=== PATIENT | male | born 1965 | race Caucasian/White ===

== ENCOUNTER 2022-01-03 07:52 | Outpatient (CLI) | payer BC, SELFPAY ==
--- OUTSIDE RECORDS SUMMARY | 2022-01-03 07:55 | XMS_ITS | Encounter Summary ---
:1965 Author Organization [facility] Address [address] [place] [address] Care Team Providers Name Role Phone Elsewhere, Pcp Primary Care Provider Unavailable Encounter Details Date Type Department Care Team Description 08/31/2020 Immunization Department of Barrie Wu [facility] unter For COVID-19 Medicine in [facility] Vaccine Immunization [place], [place] [address] [place] [phone] Social History Tobacco Use Types Packs/Day Years Used Date Smoking Tobacco: Never Assessed Sex Assigned at Date Recorded Not on file documented as of this encounter Plan of Treatment Not on filedocumented as of this encounter Visit Diagnoses Diagnosis Encounter For COVID-19 Vaccine Immunizat ion documented in this encounter 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
--- OUTSIDE RECORDS SUMMARY | 2022-01-03 07:55 | XMS_ITS | Encounter Summary ---
:1965 Author Organization [facility] Address [address] [place] [address] Care Team Providers Name Role Phone Elsewhere, Pcp Primary Care Provider Unavailable Reason for Referral Specialty Diagnoses / Procedures Referred By Contact Refer red To Contact [facility] Suzanne huang [facility] Region [address] [place] [address] Referral ID Status Reason Start Date Expiration Date Visits Requ ested Visits Authorized Reason for Visit Appointment Request (Routine) - Closed Specialty Diagnoses / Procedures Referred By Contact Refer red To Contact Family Medicine Barrie Cortez D.O. [address] [place] [address] Referral ID Status Reason Start Date Expiration Date Visits Requ ested Visits Authorized [id number] Closed 08/01/2020 08/01/2021 1 1 Encounter Details Date Type Department Care Team Description 08/03/2020 Immunization Department of [facility] er For COVID-19 Medicine in [place], [facility] ine Immunization [place] (Primary Dx) [address] [place] [address] Social History Tobacco Use Types Packs/Day Years Used Date Smoking Tobacco: Never Assessed Sex Assigned at Date Recorded Not on file documented as of this encounter Plan of Treatment Scheduled Referrals Name Type Priority Associated Diagnoses Order S chedule Covid immunization Outpatient Referral Routine Encounter For E xpected: office visit Covid-19 Vaccine 08/31/2020, Subsequent; 28 days Immunization Expires: 08/04/2023 documented as of this encounter Visit Diagnoses Diagnosis Encounter For COVID-19 Vaccine Immunizat ion - Primary documented in this encounter Care Teams Water Systems Engineer Relationship Specialty Start Date End Date Elsewhere, Pcp PCP - General Family Medicine 08/01/20 documented as of this encounter
--- OUTSIDE RECORDS SUMMARY | 2022-01-03 07:55 | XMS_ITS ---
:1965 Author Care Team Providers Name Role Phone Rina Barakat Primary Care Provider Unavailable Allergies None recorded. Medications Name Status Start Date Stop Date ? ? atorvastatin 10 mg tablet Active ? Not av ailable celecoxib 200 mg capsule Active ? Not caleb ilable chlorthalidone 25 mg tablet Active ? Not available lisinopril 40 mg tablet Active ? Not avai lable Problems None recorded. Procedures None recorded. Results Lab Results Date Name Specimen Result Interpretation Description Value Range Status Address ? 03/11/2018 Lipid ? Cholesterol, 140 100-199 Final [facility]: Panel, Total mg/dL mg/dL [address] , [place] ? ? Above Triglycerides 234 0-149 Final [facility]: High mg/dL mg/dL [address] , [place] ? ? ? HDL 44 >39 mg/dL Final [facility] : Cholesterol mg/dL [address] , [place] ? ? Above VLDL 47 5-40 Final [facility]: High Cholesterol Alvaro mg/dL mg/dL [address] , [place] ? ? ? LDL 49 0-99 Final [facility]: Cholesterol mg/dL mg/dL [address] , [place] ? ? ? 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 Cancelled [facility]: [address] , [place] ? ? ? LDL/HDL Ratio 1.1 0.0-3.6 Final [facility]: ratio ratio [address] , [place] 03/11/2018 HbA1C Above Hemoglobin a1C 5.7 % 4.8-5.6 % F inal [facility]: (Hemoglo High [address] , a1C), [place] Blood Past Encounters 02/16/2021 Administration of Influenza Vaccine LETY Salinas: [address], [place] [address], Ph. Social History None recorded. Vaccine List Vaccine Type influenza, injectable, quadrivalent 03/11/2018 influenza, injectable, quadrivalent, pre servative free 02/16/2021?0.5 mL Plan of Care Reminders Provider Appointments None recorded. ? ? Lab None recorded. ? ? Referral None recorded. ? ? Procedures None recorded. ? ? Surgeries None recorded. ? ? Imaging None recorded. ? ? Vitals None recorded.
--- OUTSIDE RECORDS SUMMARY | 2022-01-03 07:55 | XMS_ITS | Clinical Summary ---
:1965 Author Organization [facility] Address [address] [place] [address] Care Team Providers Name Role Phone Elsewhere, Pcp Primary Care Provider Unavailable Source Comments Patient records contain information from all sites at [facility]. For routine questions regarding patient records, call [phone] during business hours, M-F 8:00 AM - 5:00 PM Central Time. Record requests for emergency care only can be directed to [phone] at any time.[facility] Immunizations Name Administration Dates Next Due SARS-COV-2 (COVID-19) - MODERNA 08/31/2020, 08/03/2020 Social History Tobacco Use Types Packs/Day Years Used Date Smoking Tobacco: Never Assessed Sex Assigned at Date Recorded Not on file Plan of Treatment Health Maintenance Due Date Last Done Comments CT Colonography 1966 Cologuard 1965 Colonoscopy 1966 Colorectal Cancer Screening 1966 FIT 1966 Fasting Glucose for 1966 Diabetes Screening Fasting Lipid Panel 1966 HIV Screening 1966 Hepatitis B Vaccines (1 of 1966 3 - 3-dose series) Hepatitis C Screening 1966 Zoster Vaccines (1 of 2) 2016 Depression Screening 05/13/2021 (Annual PHQ-2) COVID-19 Vaccine (4 - 08/13/2021 04/14/2021, 08/31/2020, Booster for Moderna series) 08/03/2020 Influenza Vaccine (#1) 2022 02/22/2021, 02/16/2021, 02/15/2020, Additional history exists DTaP,Tdap,and Td Vaccines 06/28/2030 06/28/2020, 10/16/2011 , (3 - Td or Tdap) 03/11/2003 Pneumococcal vaccine (0-64 Aged Out No lo nger eligible years) based on patient 's age to complete this topic Insurance Payer Benefit Plan / Subscriber ID Effective Dates Phone Addre ss Type Group BLUE CROSS RAYA BLUE [id number] 2019-Presen [phone] [address] X [id number] PPO [facility] ACCESS t [address] [place] [address] 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
--- NOTE | 2022-01-03 08:00 | CRLHL7_ITS ---
For Patients: As a result of the Cures Act, medical imaging exams and procedure reports are released immediately into your electronic medical record. You may view this report before your referring provider. If you have questions, please contact your health care provider. Indication: POLYP SEEN ON PHYSICAL EXAM. SINUSITIS Technique: Performed without IV contrast Comparison: None available Findings: Frontal sinuses: Mucoperiosteal thickening within the frontal sinuses bilaterally, moderate. Ethmoid sinuses: Moderately severe mucoperiosteal thickening within the bilateral ethmoid sinuses. Maxillary sinuses: Moderately severe right and moderate left mucoperiosteal thickening bilaterally. The maxillary sinus drainage pathways are obstructed on both sides. Sphenoid sinuses: There is mild mucosal thickening within the sphenoid sinuses, right greater than left with obstruction of the sphenoethmoidal recesses. Nasal Cavity: Mild rightward deviation of the nasal septum. Nodularity of the inferior turbinate mucosa bilaterally. Nonobstructing jennifer bullosa left middle turbinate. Mucus noted within the nasal cavity along with nodular areas compatible with polyps. No TMJ abnormalities identified. The visualized portions of the orbits, intracranial contents and upper soft tissue neck are grossly negative. Trace left mastoid effusion noted. Normal middle ear cavities. Impression: 1. Bilateral sinus disease with obstruction of the sinus drainage pathways. 2. Nasal polyps. Please note that all CT scans at this facility use dose modulation, iterative reconstruction, and/or weight-based dosing when appropriate to reduce radiation dose to as low as reasonably achievable. Dictated by Elia Miller MD @ 01/03/2022 9:12:10 AM (Electronically Signed)
== END 2022-01-03 07:53 | disposition home or self-care (01) ==
LOC: CT 07:53
PROVIDERS: PCP Family Medicine; Visit Provider Otolaryngology
DX: R09.81 Nasal congestion (principal); J33.8 Other polyp of sinus; J34.89 Other specified disorders of nose and nasal sinuses
CPT/HCPCS: 70486

== ENCOUNTER 2022-01-31 08:34 | Outpatient (CLI) | payer BC, SELFPAY ==
--- OUTSIDE RECORDS SUMMARY | 2022-01-31 08:37 | XMS_ITS | Encounter Summary ---
:1965 Author Organization [facility] Address [address] [place] [address] Care Team Providers Name Role Phone Elsewhere, Pcp Primary Care Provider Unavailable Reason for Referral Specialty Diagnoses / Procedures Referred By Contact Refer red To Contact [facility] Suzanne huang [facility] Region [address] [place] [address] Referral ID Status Reason Start Date Expiration Date Visits Requ ested Visits Authorized Reason for Visit Appointment Request (Routine) - Closed Specialty Diagnoses / Procedures Referred By Contact Refer red To Contact Family Medicine Barrie Cortez D.O. [address] [place] [address] Referral ID Status Reason Start Date Expiration Date Visits Requ ested Visits Authorized [id number] Closed 08/01/2020 08/01/2021 1 1 Encounter Details Date Type Department Care Team Description 08/03/[address] [facility] er For COVID-19 Medicine in [place], [facility] ine Immunization [place] (Primary Dx) [address] [place] [address] Social History Tobacco Use Types Packs/Day Years [...] Primary documented in this encounter Care Teams Golf Range Attendant Relationship Specialty Start Date End Date Elsewhere, Pcp PCP - General Family Medicine 08/01/20 documented as of this encounter
--- OUTSIDE RECORDS SUMMARY | 2022-01-31 08:37 | XMS_ITS ---
[...] [address] , [place] ? ? Above Triglycerides 234 0-149 Final [facility]: High mg/dL mg/dL [address] , [place] ? ? ? HDL 44 >39 mg/dL Final [facility] : Cholesterol mg/dL [address] , [place] ? ? Above VLDL 47 5-40 Final [facility]: High Cholesterol Alvaro mg/dL mg/dL [address] , [place] ? ? ? LDL 49 0-99 Final [facility]: Cholesterol mg/dL mg/dL [address] , [place] ? ? ? 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 Cancelled [facility]: [address] , [place] ? ? ? LDL/HDL Ratio 1.1 0.0-3.6 Final [facility]: ratio ratio [address] , [place] 03/11/2018 HbA1C Above Hemoglobin a1C 5.7 % 4.8-5.6 % F inal [facility]: (Hemoglo High [address] , a1C), [place] Blood Past Encounters 02/16/2021 Administration of Influenza Vaccine LETY Salinas: [address], [place] [address], Ph. Social History None recorded. Vaccine List [...]
--- OUTSIDE RECORDS SUMMARY | 2022-01-31 08:37 | XMS_ITS | Encounter Summary ---
:1965 Author Organization [facility] Address [address] [place] [address] Care Team Providers Name Role Phone Elsewhere, Pcp Primary Care Provider Unavailable Encounter Details Date Type Department Care Team Description 08/31/2020 Immunization Department of Barrie Wu Enco unter For COVID-19 Medicine in [facility] Vaccine Immunization [place], [place] [address] [place] [phone] Social History Tobacco Use Types Packs/Day Years Used Date Smoking Tobacco: Never Assessed Sex Assigned at Date Recorded Not on file documented as of this encounter Plan of Treatment Not on filedocumented as of this encounter Visit Diagnoses Diagnosis Encounter For COVID-19 Vaccine Immunizat ion documented in this encounter 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
--- OUTSIDE RECORDS SUMMARY | 2022-01-31 08:37 | XMS_ITS | Clinical Summary ---
:1965 Author Organization [facility] Address [address] [place] [address] Care Team Providers Name Role Phone Elsewhere, Pcp Primary Care Provider Unavailable Source Comments Patient records contain information from all sites at [facility]. For routine questions regarding patient records, call [phone] during business hours, M-F 8:00 AM - 5:00 PM Central Time. Record requests for emergency care only can be directed to [phone] at any time.[facility] Immunizations Name Administration Dates Next Due SARS-COV-2 (COVID-19) - MODERNA 08/31/2020, 08/03/2020 Social History Tobacco Use Types Packs/Day Years Used Date Smoking Tobacco: Never Assessed Sex Assigned at Date Recorded Not on file Plan of Treatment Health Maintenance Due Date Last Done Comments CT Colonography 1966 Cologuard 1966 Colonoscopy 1966 Colorectal Cancer Screening 1966 FIT 1966 Fasting Glucose for 1966 Diabetes Screening HIV Screening 1966 Hepatitis B Vaccines (1 of 1966 3 - 3-dose series) Hepatitis C Screening 1966 Lipid (Cholesterol) 1966 Screening Zoster Vaccines (1 of 2) 2016 Depression Screening 05/13/2021 (Annual PHQ-2) COVID-19 Vaccine (4 - 06/09/2021 04/14/2021, 08/31/2020, Booster for Moderna series) 08/03/2020 [...] Addre ss Type Group BLUE CROSS RAYA LOPEZ [id number] 2019-Presen [phone] PO NAZIA X [id number] PPO [facility] ACCESS t [address] [place] [id number] Care Teams Ship Self Defense System Mk1 Operator Relationship Specialty Start Date End Date Elsewhere, Pcp PCP - General Family Medicine 08/01/20
[2022-01-31 14:21] LABS: SARS PCR* Negative SARS-CoV-2 (Negative)
[2022-01-31 14:33] LABS: Chloride* 105 mmol/L (96-114)
[2022-01-31 14:34] LABS: Potassium* 4.4 mmol/L (3.6-5.1); Sodium* 139 mmol/L (135-149)
[2022-01-31 14:36] LABS: Cholesterol* 136 mg/dL (90-199); Creatinine* 0.9 mg/dL (0.5-1.5); Estimated Glomerular Filt Rate 101 ml/min
[2022-01-31 14:37] LABS: Blood Urea Nitrogen* 20 mg/dL (7-30); Calcium* 9.2 mg/dL (8.4-10.6); Carbon Dioxide* 25 mmol/L (20-32); Glucose* 102 mg/dL (60-115); Triglycerides* 80 mg/dL (40-149)
[2022-01-31 14:38] LABS: HDL Cholesterol* 51 mg/dL (>=40); LDL Cholesterol Calculated 69 mg/dL (<100)
[2022-01-31 15:08] LABS: PSA Screen* 0.93 ng/mL (0.10-4.00)
== END 2022-01-31 08:35 | disposition home or self-care (01) ==
PROVIDERS: PCP Family Medicine; Visit Provider Family Medicine
DX: Z01.818 Encounter for other preprocedural examination (principal); Z12.5 Encounter for screening for malignant neoplasm of prostate; E78.5 Hyperlipidemia, unspecified; I10 Essential (primary) hypertension
CPT/HCPCS: 80048; 80061; 84153; 87635

== ENCOUNTER 2022-02-02 07:57 | Day surgery (SDC) | payer BC, SELFPAY ==
[2022-02-02] VITALS (14 sets, daily range): BP systolic 129–140; BP diastolic 78–96; PULSE 56–84; RESP 12–16; TEMP 36.2–36.6; O2SAT 96–99; BMI 29.3
[2022-02-02] MEDS: LACTATED RINGERS 1000 ML 1,000 ML 100 ML IV (08:30)
[2022-02-02] MEDS: OXYMETAZOLINE 0.05% NASAL SPRAY 1 SPRAY NOSTRIL-B (08:45)
[2022-02-02] MEDS: COCAINE HCL 4 % 4 ML SOLUTION NOSTRIL-B (09:04)
[2022-02-02] MEDS: BUPIVACAINE 0.5%/EPINEPHRINE 0.9 MG (30.9 ML) INJECTION (09:45)
--- NOTE | 2022-02-02 10:07 | W.ANESCHARGE ---
Anesthesia Charges Start Date/Time Anesthesia Start Date: 02/02/22 Anesthesia Start Time: 09:18 Stop Date/Time Anesthesia Stop Date: 02/02/22 Anesthesia Stop Time: 10:05 Summary Emergency: No
--- NOTE | 2022-02-02 10:09 | W.ANESCHARGE ---
Anesthesia Charges Start Date/Time Anesthesia Start Date: 02/02/22 Anesthesia Start Time: 09:18 Stop Date/Time Anesthesia Stop Date: 02/02/22 Anesthesia Stop Time: 10:05 Summary Emergency: No
[2022-02-02] MEDS: fentaNYL 100 MCG/2 ML inj 50 MCG IVP (10:15)
--- NOTE | 2022-02-02 10:41 | SUR.PHASEI ---
patient met anesthesia criteria for discharge
--- NOTE | 2022-02-02 10:59 | W.PM.ENTPROC ---
Procedure Note Date of procedure: 02/02/22 Procedure: Procedure: Preoperative diagnosis large nasopharyngeal polyp, pansinusitis, mild nasal septal deviation, inferior turbinate hypertrophy, nasal obstruction Postoperative diagnosis same plus additional right nasal polyp at middle meatus new line procedure endoscopic bilateral nasal polypectomy with removal of large nasopharyngeal polyp on the left side and the right-sided smaller polyp., submucous partial resection inferior turbinates Under general endotracheal anesthesia patient was prepped and draped in usual fashion the nose injected and decongested.? The McIvor mouth gag was inserted the tongue retracted forward.? A red rubber catheter was placed in the right nostril and pulled out through the mouth to retract the palate.? A large polyp with visible occluding essentially the entire nasopharynx.? I was unable to easily reach it through the nasopharynx so I went in transnasally and relocated the septum to be midline with a nasal speculum.? I was able improves the polyp down into the nasopharynx or could easily grasped with an up-biting ethmoid forceps on indirect visualization with a laryngeal mirror.? The 0 degree endoscope was also available for use throughout the procedure.? The polyp was removed in total.? And sent to pathology. The remainder of the nose was inspected.? The right polyp was noted in the middle meatus is about 1 cm in size this was also removed.? A stab incision was made in the anterior head of the left inferior turbinate a tunnel created with a [place] dissector.? A conservative anterior submucous resection was performed.? The Coblation was used for hemostasis and to cauterize the inferior 10%.? Dissolvable packing was trimmed and placed beneath the polyp biopsy sites on each side.? The patient procedure well was taken recovery in satisfactory condition.? Blood loss during procedure was less than 25 mL Surgeon: Deshaun Cifuentes MD Surgeon: Deshaun Cifuentes MD
[2022-02-02] MEDS: OXYCODONE 5 MG TABLET PO (11:00)
== END 2022-02-02 12:03 | disposition home or self-care (01) ==
PROVIDERS: PCP Family Medicine; Visit Provider Otolaryngology
PROC: (CPT 31231; principal; 2022-02-02 09:15)
DX: J33.0 Polyp of nasal cavity (principal); J34.2 Deviated nasal septum; J32.4 Chronic pansinusitis; J34.3 Hypertrophy of nasal turbinates
CPT/HCPCS: 31237; 30140; 160; 88304; 88305; A9270; J0330; J1100; J2250; J2405; J2704; J3010; J7120

== ENCOUNTER 2023-03-27 08:27 | Outpatient (CLI) | payer BC, SELFPAY | END 2023-03-27 08:28 | disposition home or self-care (01) | LOC: LONREF 08:28 | PROVIDERS: PCP Family Medicine; Visit Provider Family Medicine | DX: Z00.00 Encounter for general adult medical examination without abnormal findings (principal); E78.5 Hyperlipidemia, unspecified | CPT/HCPCS: 80061 ==

== ENCOUNTER 2024-03-27 13:55 | Outpatient (CLI) | payer BC, SELFPAY | END 2024-03-27 13:56 | disposition home or self-care (01) | PROVIDERS: PCP Family Medicine; Visit Provider Family Medicine | DX: Z00.00 Encounter for general adult medical examination without abnormal findings (principal); E78.5 Hyperlipidemia, unspecified; I10 Essential (primary) hypertension; Z12.5 Encounter for screening for malignant neoplasm of prostate | CPT/HCPCS: 80048; 80061; G0103 ==

== ENCOUNTER 2025-04-27 22:13 | Observation (INO) | payer BC, SELFPAY ==
[2025-04-27] VITALS (8 sets, daily range): BP systolic 152–182; BP diastolic 104–113; PULSE 75–90; RESP 10–20; TEMP 36.6; O2SAT 93–98; BMI 33.1
--- OUTSIDE RECORDS SUMMARY | 2025-04-27 22:16 | XMS_ITS | Data Portability ---
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 Localized Spa sm of the Left Levator Scapula, Scalenes, and Upper Trapezius Assessment: Localized spasm of the left levator scapula, scalenes, and upper trapezius. Plan: All issues were adjusted during the visit. Patient responded well to the adjustments. 2. Significant Subluxation in the Mid Thoracic Spine Assessment: Significant subluxation in the mid thoracic spine. Plan: All issues were adjusted during the visit. Patient responded well to the adjustments. Next appointment scheduled in 2 weeks. ASSESSMENT: Patient is a good candidate for conservative care and the prognosis is for a favorable outcome thatachieves the patients' goals. We discussed etiology, activity modifications, home care, and other treatment options. Initially, it is recommended that the patient receive in-office treatment 1 times per week for 8 weeks at which time a re-evaluation will be performed to determine an appropriate change in plan. Initially, treatment will focus on joint manipulation to restore range of motion and reduce pain. We will slowly progress to therapeutic exercises and activities to improve function, strength, and stability may also be used as warranted. If the patient is not responding as expected, more invasive procedures will be discussed along with a referral. All considerations above were discussed with the patient and questions answered to satisfaction. If the patient should have any additional questions, or should the condition evolve or worsen, the patient should not hesitate to contact our office. ASSESSMENT: Patient is a good candidate for conservative care and the prognosis is for a favorable outcome thatachieves the patients' goals. We discussed etiology, activity modifications, home care, and other treatment options. Initially, it is recommended that the patient receive in-office treatment 1 times per week for 8 weeks at which time a re-evaluation will be performed to determine an appropriate change in plan. Initially, treatment will focus on joint manipulation to restore range of motion and reduce pain. We will slowly progress to therapeutic exercises and activities to improve function, strength, and stability may also be used as warranted. If the patient is not responding as expected, more invasive procedures will be discussed along with a referral. All considerations above were discussed with the patient and questions answered to satisfaction. If the patient should have any additional questions, or should the condition evolve or worsen, the patient should not hesitate to contact our office. ecramNot gofkupdfv12/14/2025 11:09:470450. Localized Spasm of the Left Levator Scapula, Scalenes, and Upper Trapezius Assessment: Localized spasm of the left levator scapula, scalenes, and upper trapezius. Plan: All issues were adjusted during the visit. Patient responded well to the adjustments. 2. Significant Subluxation in the Mid Thoracic Spine Assessment: Significant subluxation in the mid thoracic spine. Plan: All issues were adjusted during the visit. Patient responded well to the adjustments. Next appointment scheduled in 2 weeks. ASSESSMENT: Patient is a good candidate for conservative care and the prognosis is for a favorable outcome thatachieves the patients' goals. We discussed etiology, activity modifications, home care, and other treatment options. Initially, it is recommended that the patient receive in-office treatment 1 times per week for 8 weeks at which time a re-evaluation will be performed to determine an appropriate change in plan. Initially, treatment will focus on joint manipulation to restore range of motion and reduce pain. We will slowly progress to therapeutic exercises and activities to improve function, strength, and stability may also be used as warranted. If the patient is not responding as expected, more invasive procedures will be discussed along with a referral. All considerations above were discussed with the patient and questions answered to satisfaction. If the patient should have any additional questions, or should the condition evolve or worsen, the patient should not hesitate to contact our office. ASSESSMENT: Patient is a good candidate for conservative care and the prognosis is for a favorable outcome thatachieves the patients' goals. We discussed etiology, activity modifications, home care, and other treatment options. Initially, it is recommended that the patient receive in-office treatment 1 times per week for 8 weeks at which time a re-evaluation will be performed to determine an appropriate change in plan. Initially, treatment will focus on joint manipulation to restore range of motion and reduce pain. We will slowly progress to therapeutic exercises and activities to improve function, strength, and stability may also be used as warranted. If the patient is not responding as expected, more invasive procedures will be discussed along with a referral. All considerations above were discussed with the patient and questions answered to satisfaction. If the patient should have any additional questions, or should the condition evolve or worsen, the patient should not hesitate to contact our office. ecramNot niebbceaf81/18/2025 23:04:2605. Localized Spasm of the Left Levator Scapula, Scalenes, and Upper Trapezius Assessment: Localized spasm of the left levator scapula, scalenes, and upper trapezius. Plan: All issues were adjusted during the visit. Patient responded well to the adjustments. 2. Significant Subluxation in the Mid Thoracic Spine Assessment: Significant subluxation in the mid thoracic spine. Plan: All issues were adjusted during the visit. Patient responded well to the adjustments. Next appointment scheduled in 2 weeks. ASSESSMENT: Patient is a good candidate for conservative care and the prognosis is for a favorable outcome thatachieves the patients' goals. We discussed etiology, activity modifications, home care, and other treatment options. Initially, it is recommended that the patient receive in-office treatment 1 times per week for 8 weeks at which time a re-evaluation will be performed to determine an appropriate change in plan. Initially, treatment will focus on joint manipulation to restore range of motion and reduce pain. We will slowly progress to therapeutic exercises and activities to improve function, strength, and stability may also be used as warranted. If the patient is not responding as expected, more invasive procedures will be discussed along with a referral. All considerations above were discussed with the patient and questions answered to satisfaction. If the patient should have any additional questions, or should the condition evolve or worsen, the patient should not hesitate to contact our office. ASSESSMENT: Patient is a good candidate for conservative care and the prognosis is for a favorable outcome thatachieves the patients' goals. We discussed etiology, activity modifications, home care, and other treatment options. Initially, it is recommended that the patient receive in-office treatment 1 times per week for 8 weeks at which time a re-evaluation will be performed to determine an appropriate change in plan. Initially, treatment will focus on joint manipulation to restore range of motion and reduce pain. We will slowly progress to therapeutic exercises and activities to improve function, strength, and stability may also be used as warranted. If the patient is not responding as expected, more invasive procedures will be discussed along with a referral. All considerations above were discussed with the patient and questions answered to satisfaction. If the patient should have any additional questions, or should the condition evolve or worsen, the patient should not hesitate to contact our office. ecramNot nbxcoqjtp26/16/2025 16:30:5808SSESSMENT: Patient is a good candidate for conservative care and the prognosis is for a favorable outcome thatachieves the patients' goals. We discussed etiology, activity modifications, home care, and other treatment options. Initially, it is recommended that the patient receive in-office treatment 1 times per week for 8 weeks at which time a re-evaluation will be performed to determine an appropriate change in plan. Initially, treatment will focus on joint manipulation to restore range of motion and reduce pain. We will slowly progress to therapeutic exercises and activities to improve function, strength, and stability may also be used as warranted. If the patient is not responding as expected, more invasive procedures will be discussed along with a referral. All considerations above were discussed with the patient and questions answered to satisfaction. If the patient should have any additional questions, or should the condition evolve or worsen, the patient should not hesitate to contact our office. sxxlvrhi6Yjb qikxlnwwi50/06/2025 18:08:0708SSESSMENT: Patient is a good candidate for conservative care and the prognosis is for a favorable outcome thatachieves the patients' goals. We discussed etiology, activity modifications, home care, and other treatment options. Initially, it is recommended that the patient receive in-office treatment 1 times per week for 8 weeks at which time a re-evaluation will be performed to determine an appropriate change in plan. Initially, treatment will focus on joint manipulation to restore range of motion and reduce pain. We will slowly progress to therapeutic exercises and activities to improve function, strength, and stability may also be used as warranted. If the patient is not responding as expected, more invasive procedures will be discussed along with a referral. All considerations above were discussed with the patient and questions answered to satisfaction. If the patient should have any additional questions, or should the condition evolve or worsen, the patient should not hesitate to contact our office. kfzwpumj7Ojm wyylxhoyj46/13/2025 07:17:51 Plan of Treatment Reminders Order DateSubmit DateProviderLast Modified ByMikki DetailsLast Modified TimeDetailsAppointmentsNone recorded.LabNone recorded.ReferralNone recorded. ProceduresNone recorded.SurgeriesNone recorded.ImagingNone recorded.Medication OrdersNone recorded. Patient TargetsNo targets recorded. Patient InstructionsNo instructions recorded. Reason for Referral None Reported. Problems Name Problem SNOMED Code Status Onset Date Resolution Date Notes Provider Name and Address Organization Details Recorded Time Thoracic segmental dysfunction 953994229 Active 04/17 Not NdjdoqbjdRxtuljHluczf95/07/2024 10:21:41Lumbar segmental dysfunction 485144990Booplp85/06/2024Not FbexitgvnPrutycGcztdz72/07/2024 10:21:41Low back tdqm291489583Mlwheq54/06/2024Andrea Hernandez DC [address] [place] [address], [place], [address], Formerly [facility]04/17/2024 19:02:06Somatic dysfunction of sacral spine 469866562Actumj82/06/2024Not DqlpyfunuMcgbzpLhzkck49/07/2024 10:21:41Cervical segmental lhjnadrodsh452788344Rmurke81/03/2025Andrea Hernandez DC [address] [facility], [address], Formerly [facility]05/15/2024 21:36:12Muscle spasm of cervical muscle of neck 298017171909Xykmdh06/03/2025Andrea Hernandez DC [address] [facility],[address], [address], [facility]ly [facility]05/15/2024 21:36:19Somatic dysfunction of pelvic region 452032792Rvtdyo07/03/2025Andrea Hernandez DC [address] [facility], [place], [address], Formerly [facility]05/15/2024 21:36:34Neck rndl48356135Xvfipi84/07/2025Eric Jacob Hernandez, MOISÉS [address] [facility], [place], [address], [facility]ly [facility]06/19/2024 16:23:18Lesion of lumbar egndi964490163Dasyfp 12/23/2024Scmanuel FitchalbertogalindoMOISÉS [address] [facility], [place], [address], [facility]12/23/2024 07:17:53 Problem Notes None recorded. Procedures Surgical History Date Name Laterality Status Provider Name and Address Organization Details Recorded Time 12/22/2024 93901: Spinal manipulation, 3 to 4 regions completedScmanuel Crow, MOISÉS [address] [facility], [place], [address], [facility]ly [facility]12/23/2024 07:18:04088941: Spinal manipulation, 3 to 4 regionscompletedScot Cecil Fitchalbertogalindo, MOISÉS [address] [facility], [place], [address], [facility]ly [facility]12/16/2024 18:08:22058941: Spinal manipulation, 3 to 4 regionscompletedEric Jacob Hernnadez, DC [address] [facility], [place], [address], [facility]ly [facility]09/25/2024 16:30:58048941: Spinal manipulation, 3 to 4 regionscompletedEric Jacob Hernandez, DC [address] [facility], [place], [address], [facility]08/28/2024 23:04:2603/[id number]: Spinal manipulation, 3 to 4 regionscompletedEric Jacob Hernandez, DC [address] [facility], [place], [address], [facility]07/24/2024 11:09:47028941: Spinal manipulation, 3 to 4 regionscompletedEric Jacob Hernandez, DC [address] [facility], [place], [address], [facility]06/19/2024 16:24:06598941: Spinal manipulation, 3 to 4 [facility]comMon [facility] Centeric Jacbo Hernandez DC [address] [facility], [place], [address], [facility]05/15/2024 21:35:55498941: Spinal manipulation, [facility]com[facility] Jacob Hernandez DC [address] [place] [address], [place], [address], [facility]04/17/2024 19:02:28 Imaging Results None recorded. Procedure Notes None recorded. Medical Equipment None Reported. Vitals None Recorded Social History None recorded. Functional Status None recorded. Mental Status None recorded. Family History Nothing Reported. Medical History No medical history recorded. Past Encounters Encounter ID Performer Location Encounter Start Date Encounter Closed Date Diagnosis/Indication Diagnosis SNOMED-CT Code Diagnosis ICD10 Code Diagnosis IMO Codes Diagnosis Note [id number] Andrea Hernandez DC [facility] [address] [place] [address] 04/17/2024 16:06:50 04/17/2024 19:03:29 Lumbar segmental dysfunction 991611658 M99.03 Low back pbip694120487F27.50 Somatic dysfunction of sacral opwzv734385130L27.04 Thoracic segmental sdpwemngbar384136721W29.02 [id number] Hernandez [facility] [address] [place] [address] 05/15/2024 16:02:05005/19/2024 11:14:25Thoracic segmental jxqgprckwsd787086130 M99.02 Cervical segmental qyrqvroikbq484098219O69.01 Muscle spasm of cervical muscle of sbuq648607605142Y71.838 Somatic dysfunction of pelvic saalyr891846823D87.05 [id number] Hernandez [facility] [address] [place] [address] 06/19/2024 15:57:11006/19/2024 16:40:06Thoracic segmental xomwfjxfrfl195939783 M99.02 Cervical segmental qxvuncsjsjt814648213T53.01 Muscle spasm of cervical muscle of kkto162437255232W98.838 Somatic dysfunction of pelvic tfcgdx953872184Y24.05 Lumbar segmental quhgxqadzej145804968J78.03 Low back zoir322239736X81.50 Somatic dysfunction of sacral iafue176526442Q10.04 Neck hsgf95909035K91.2 [id number] Jacob Hernandez, [facility] [address] [place] [address] 07/24/2024 10:58:14007/24/2024 11:46:35Thoracic segmental cbmjufdvqxo282911449 M99.02 Cervical segmental mjresqaemov451323413D96.01 Muscle spasm of cervical muscle of tdam735934923951Y57.838 Somatic dysfunction of pelvic gqoalh142808113S81.05 Lumbar segmental ewhlyuoiemk601133319X64.03 Low back paoa244095387G89.50 Somatic dysfunction of sacral dzpjq628548302Z62.04 Neck ugei61800979K72.2 [id number] HernandezN[facility] & [address] [place] [address] 08/28/2024 15:52:32008/31/2024 16:26:29Thoracic segmental nulzcqtvxhw860451239 M99.02 Cervical segmental fbtftglkomd956043030P05.01 Muscle spasm of cervical muscle of nsfz791009273865V54.838 Somatic dysfunction of pelvic jmudkc947246270G29.05 Lumbar segmental aznhfjfrubl952089403Z16.03 Low back zqkj102707597U23.50 Somatic dysfunction of sacral ruolh772996945G83.04 Neck fgfj90498469I84.2 [id number] Jacob [facility] [address] [address] 09/25/2024 15:47:41009/25/2024 16:33:10Thoracic segmental wspldlvdsif026663519 M99.02 Cervical segmental krhosodozmb063046140V48.01 Muscle spasm of cervical muscle of iamf526793704740E63.838 Somatic dysfunction of pelvic ukrlwd686954826M06.05 Lumbar segmental hnxoyviorbn278585322B29.03 Low back flmd691463679X44.50 Somatic dysfunction of sacral pmtxk950064079G16.04 Neck vdjk25931126L25.2 [id number] Cecil FitchalbertogalindoHOLZER [facility] & [address] [place] [address] 12/16/2024 14:54:10012/16/2024 18:14:23Lumbar segmental vmcpbliheem915401060 M99.03 Low back aist449916012G45.50 Somatic dysfunction of sacral kalbc619128366O97.04 Thoracic segmental qqveozhdyum140347664A94.02 [id number] Cecil FitchalbertogalindoHOLZER [facility] [address] [place] [address] 12/22/2024 17:07:30012/24/2024 11:24:53Cervical segmental tlxiosoqxxy932767393 M99.01 Neck rhte63481390A75.2 Thoracic segmental ttgdsajlket040482507K84.02 Lumbar segmental yhooqcmnofy865199769I65.03 Lesion of lumbar fkwjy529221821M33.01 Health Concerns Section Related Observation LastModified by Organization Detai ls LastModified Time None Recorded Concern Status LastModified by Organization Details LastModified Time None Recorded Advance Directives Directive None Recorded Payers Insurance Date Sequence Insurance Name Policy Number Policy Hdz Covered Member ID Hdz Member ID Guarantor Name 04/17/2024 1 *SELF PAY* Raymond Bates Notes Date Note Type Note Provider Name and Address Orga nization Details Recorded Time 07/24/2024 text/html HPI - Cervical S pineReported by PatientHPIFor location, patient reportsright. For quality, patient reportsaching. For severity, patient reportsmild. For timing, patient reportsgradual. For alleviating factors, patient reportsrest. For aggravating factors, patient reportstwisting/turning. For associated symptoms, patient reportsno numbness/tingling. HPI - Lumbar SpineReported by PatientHPIFor location, patient reportsbilateral (with radiation to knee). For quality, patient reportsaching. For severity, patient reportsmoderate. For timing, patient reportsrecurrent. For context, patient reportsbending,lifting, andtwisting. For aggravating factors, patient reportslifting,carrying, andtwisting. For alleviating factors, patient reports rest.Andrae Hernandez DC [address] [facility], [place], [address], Formerly [facility]07/24/2024 11:29:4904text/htmlHPI - Cervical Spine Reported by PatientHPIFor location, patient reportsright. For quality, patient reportsaching. For severity, patient reportsmild. For timing, patient reports gradual. For alleviating factors, patient reportsrest. For aggravating factors, patient reportstwisting/turning. For associated symptoms, patient reportsno numbness/tingling. HPI - Lumbar SpineReported by PatientIFor location, patient reportsbilateral (with radiation to knee). For quality, patient reportsaching. For severity, patient reportsmoderate. For timing, patient reportsrecurrent. For context, patient reportsbending,lifting, andtwisting. For aggravating factors, patient reportslifting,carrying, andtwisting. For alleviating factors, patient reports rest.Andrea Hernandez DC [address] [facility], [place], [address], [facility]08/28/2024 23:05:2805text/htmlHPI - Cervical Spine Reported by PatientHPIFor location, patient reportsright. For quality, patient reportsaching. For severity, patient reportsmild. For timing, patient reports gradual. For alleviating factors, patient reportsrest. For aggravating factors, patient reportstwisting/turning. For associated symptoms, patient reportsno numbness/tingling. HPI - Lumbar SpineReported by PatientIFor location, patient reportsbilateral (with radiation to knee). For quality, patient reportsaching. For severity, patient reportsmoderate. For timing, patient reportsrecurrent. For context, patient reportsbending,lifting, andtwisting. For aggravating factors, patient reportslifting,carrying, andtwisting. For alleviating factors, patient reports rest.Andrea Hernandez DC [address] [facility], [place], [address], [employer]09/25/2024 16:32:00012/16/2024text/htmlHPI - Lumbar Spine Reported by PatientHPIFor location, patient reportsleft. For quality, patient reportsaching. For severity, patient reportsmoderate. For timing, patient reportsmorning. For aggravating factors, patient reportswalking,lifting,carrying , andtwisting. For alleviating factors, patient reportsrest.Torsten Crow DC [address] [facility], [place], [address], [employer]12/16/2024 18:08:35012/22/2024text/htmlHPI - Cervical Spine Reported by PatientHPIFor location, patient reportsleft. For quality, patient reportsaching. For severity, patient reportsmoderate. For duration, patient reports2 weeks. For timing, patient reportsgradual. For alleviating factors, patient reportsice. For aggravating factors, patient reportssitting. For associated symptoms, patient reportsno numbness/tingling.Torsten Crow DC [address] [facility], [place], [address], [employer]12/23/2024 07:18:13
--- NOTE | 2025-04-27 22:20 | ED.GENADULT ---
HPI - General Adult General Date Seen: 04/27/25 Chief complaint: Hypertension Stated complaint: High BP Time Seen by Provider: 04/27/25 22:17 History of Present Illness HPI narrative: 59-year-old gentleman with a history of hyperlipidemia, hypertension, GERD, and a family history of coronary artery disease. He presents to the ER today for evaluation of high blood pressure. Per medical record it looks like his primary care provider is Dr. Aiken. Most recent checkup was in March of 2024. At that time he was on lisinopril 40 mg daily for blood pressure, also atorvastatin and omeprazole. Labs showed BUN of 17 and creatinine of 1.0. Glucose 87. Blood pressure was 124/76. He had been doing well for the past year. He was switched from lisinopril to irbesartan for his blood pressure. He notes that a couple weeks ago he had a few dizzy spells. One of them was a little bit lightheadedness and presyncope and another of the spells is described as a clear spinning vertigo type episode. He has not had any dizzy spells over the past week or so. No other chest pain. He did get a home blood pressure cuff and has been measuring his blood pressure for the past couple of days and has been running fairly high in the 160s-170/1 10s. He has not had any recent chest pain. Tonight at about 9 or 9:30 p.m. he was sitting on the couch watching TV when he suddenly started to feel tingling paresthesias and numbness affecting his left elbow, forearm and hand. It sounds like it started in his left elbow and then progressed distally from there to involve all the way down to his hand including the fingers. No weakness. No clumsiness. No right arm numbness. No headache. No facial droop. No blurry vision. No leg numbness or weakness. He checked his blood pressure and it was more elevated. No chest pain. No shortness of breath. No back pain. Related Data Home Medications ?Medication ?Instructions ?Recorded ?Confirmed omega 6-zna-kbi-fish oil 300 1 cap PO QDAY 01/31/22 03/27/24 mg-1,000 mg capsule (Fish Oil) omeprazole 20 mg capsule,delayed 20 mg PO QDAY 01/31/22 03/27/24 release Previous Rx's ?Medication ?Instructions ?Recorded lisinopril 40 mg tablet 40 mg PO QDAY #90 tabs 03/27/23 atorvastatin 10 mg tablet 10 mg PO QDAY #90 tabs 04/01/25 irbesartan 150 mg tablet 150 mg PO QDAY #90 tabs 04/01/25 Allergies Allergy/AdvReac Type Severity Reaction Status Date / Time ibuprofen Allergy Mild Stomach Verified 03/27/24 13:19 pains PFSH PFSH Surgical History Status post tonsillectomy (02/01/09) ?Z90.89 - Acquired absence of other organs (ICD-10) Social History What is your current living situation?: I presently have a place to live Problems where you live: no known problems In the past 12 months, utilities in danger of being shut off: no In past 12 months, lack of transportation kept you from medical appts, meetings, work, or getting things needed for daily living: no In the past 12 mos, have been you worried that your food would run out before you had money to buy more?: never true In the past 12 mos, the food you bought just didn't last and you didn't have money to buy more?: never true Smoking Status: Never smoker How often do you have a drink containing alcohol: never AUDIT-C Alcohol total score: 0 Non-prescribed substance use: denies use Caffeine: No How often does anyone, including family, friends and others, physically hurt you: never How often does anyone, including family, friends and others, insult or talk down to you: never How often does anyone, including family, friends and others, threaten you with harm: never How often does anyone, including family, friends and others, scream or curse at you: never Exam Narrative: Exam Narrative: Constitutional: Appears well-developed and well-nourished. Alert. Conversant. Non toxic. HENT: Head: Atraumatic. Nose: Nose normal. Mouth/Throat: Oral mucosa is clear and moist. no trismus. Pharynx normal. Tonsils symmetric. No tonsillar enlargement, erythema, or exudate. Eyes: Conjunctivae normal. EOM normal. Pupils equal, round, and reactive to light. No scleral icterus. Neck: Normal range of motion. Neck supple. No tracheal deviation present. Cardiovascular: Normal rate, regular rhythm. No gallop. No friction rub. No murmur heard. Symmetric radial artery pulses Pulmonary/Chest: Effort normal. No stridor. No respiratory distress. No wheezes. No rales. No rhonchi . No tenderness. Abdominal: Soft. Bowel sounds normal. No distension. No mass. No tenderness. No rebound. No guarding. Musculoskeletal: RUE: Normal range of motion. No tenderness. No deformity LUE: Normal range of motion. No tenderness. No deformity RLE: Normal range of motion. No edema. No tenderness. No deformity LLE: Normal range of motion. No edema. No tenderness. No deformity Lymph: No cervical adenopathy. Neurological: Mental status normal. Attention normal. Alert and oriented x3. GCS 15. Memory normal. Speech fluent. Cognition normal. Cranial Nerves intact II-XII except I did not formally test gag or visual acuity. EOMI. Palate elevates symmetrically and tongue protrudes in the midline. Strength: 5/5 trapezius on the right and left 5/5 deltoid on the right and left 5/5 biceps on the right and left 5/5 triceps on the right and left 5/5 director of analytical development on the right and left 5/5 thumb opposition on the right and left 5/5 finger abduction on the right and left 5/5 hip flexors (L3) on the right and left 5/5 quadriceps (L4) on the right and left 5/5 tibialis anterior on the right and left 5/5 EHL (L5) on the right and left 5/5 gastrocnemius (S1) on the right and left 5/5 hamstring on the right and left Sensation intact to light touch in the right upper extremity. He does have intact sensation in the left upper extremity but feels some subjective paresthesias in the forearm and hand. He says they are getting better now that he is arriving here in the ER but still not quite back to normal. Sensation intact to light touch in Both lower extremities (L4-S1). Finger to nose and coordination normal. NIH stroke scale- 1 Skin: Skin is warm and dry. No rash noted. No pallor. Normal capillary refill. Psychiatric: Normal mood. Normal affect. Polite. Const: Vital Signs, click to edit/add: Vital Signs - 24 hr 04/27/25 22:19 04/27/25 22:40 04/27/25 22:41 Temperature 97.8 F Pulse Rate 85 Pulse Rate [Right Pulse Oximeter] 90 Respiratory Rate 18 20 Blood Pressure 179/111 H Blood Pressure [Ri ght Upper Arm] 175/113 H Pulse Oximetry 98 94 98 Oxygen Delivery Me thod Room Air 04/27/25 22:47 04/27/25 23:10 04/27/25 23:18 Temperature Pulse Rate 90 76 77 Pulse Rate [Right Pulse Oximeter] Respiratory Rate 12 10 L 14 Blood Pressure 173/107 H 182/107 H 168/112 H Blood Pressure [Ri ght Upper Arm] Pulse Oximetry 98 94 96 Oxygen Delivery Me thod 04/27/25 23:32 04/27/25 23:48 04/28/25 00:02 Temperature Pulse Rate 75 75 77 Pulse Rate [Right Pulse Oximeter] Respiratory Rate 19 19 20 Blood Pressure 164/104 H 152/107 H 164/116 H Blood Pressure [Ri ght Upper Arm] Pulse Oximetry 93 95 94 Oxygen Delivery Me thod 04/28/25 00:17 Temperature Pulse Rate 73 Pulse Rate [Right Pulse Oximeter] Respiratory Rate 20 Blood Pressure 164/110 H Blood Pressure [Ri ght Upper Arm] Pulse Oximetry 94 Oxygen Delivery Me thod Course Vital Signs Vital signs: Initial Vital Signs Temperature 97.8 F 04/27/25 22:19 Temperature Source Temporal Artery Scan 04/27/25 22:19 Pulse Rate 90 04/27/25 22:19 Respiratory Rate 18 04/27/25 22:19 Blood Pressure 175/113 H 04/27/25 22:19 Blood Pressure Mean 133 H 04/27/25 22:19 Blood Pressure Position Sitting 04/27/25 22:19 Pulse Oximetry 98 04/27/25 22:19 Oxygen Delivery Method Room Air 04/27/25 22:19 Vital Signs Temperature 97.8 F 04/27/25 22:19 Pulse Rate 90 04/27/25 22:19 Respiratory Rate 18 04/27/25 22:19 Blood Pressure 175/113 H 04/27/25 22:19 Pulse Oximetry 98 04/27/25 22:19 Oxygen Delivery Method Room Air 04/27/25 22:19 Temperature 97.8 F 04/27/25 22:19 Pulse Rate 73 04/28/25 00:17 Respiratory Rate 20 04/28/25 00:17 Blood Pressure 164/110 H 04/28/25 00:17 Pulse Oximetry 94 04/28/25 00:17 Oxygen Delivery Method Room Air 04/27/25 22:19 Medications Administered Medications: Discontinued Medications Generic Name Dose Route Start Last Admin Trade Name Anil PRN Reason Stop Dose Admin Aspirin 325 mg 04/27/25 23:48 04/28/25 00:15 Aspirin Ec 325 Mg Tablet PO 04/27/25 23:49 325 mg ONCE ONE Administration Medical Decision Making MDM Narrative Medical decision making narrative: This patient presents for evaluation of elevated blood pressure readings associated with tingling paresthesias affecting his left forearm and hand. There is known history of hypertension in the past. No concerning symptoms of chest pain but consider possible anginal equivalent with his left arm numbness. Initial EKG shows no ischemia and high sensitivity troponin is negative. He is not having any headache. The workup here is negative and the patient does not have any clinical, laboratory, ecg or historical signs of acute coronary ischemia or renal failure. However with his left arm symptoms, consider stroke and neurologic end-organ damage. We did activate a stroke team protocol and the patient was sent for stat head CT and CTA. Here in the ER he had resolution of his tingling paresthesias and is now back to neurologic baseline with no ongoing symptoms. Discussed with stroke neurology, Dr. Colunga. He would recommend admission for neuro monitoring, MRI and TIA workup in the morning. For now I will out permissive hypertension. While in the ER the patient's blood pressure did trend down from about 175-179/113 down to about 152/107 without specific pharmacologic therapy. Discussed with our hospitalist, Dr. Nagel and the overnight [facility] hospitalist at 12:25 p.m. and he accepts for admission. Incidental note is made of a thyroid nodule on the preliminary report of his CT angiogram his neck. Discussed with patient and recommend outpatient follow-up. Lab Data Labs: Lab Results 04/27/25 04/27/25 04/27/25 Range/Units 22:25 22:40 22:43 WBC 7.78 (4.50-11.00) K/uL RBC 5.23 (4.30-5.90) m/uL Hgb 15.2 (13.5-17.5) gm/dL Hct 48.0 (37.0-53.0) % MCV 92 (80-100) fL MCH 29 (26-34) pg MCHC 32 (32-36) gm/dL RDW Coeff of Kindra 13.1 (11.5-15.5) % Plt Count 251 (140-440) K/uL Neut % (Auto) 55.2 (42.0-72.0) % Lymph % (Auto) 30.5 (20-44) % Knox % (Auto) 9.5 (0.0-11.0) % Eos % (Auto) 3.5 (0.0-7.0) % Baso % (Auto) 0.9 (0.0-3.0) % Neut # (Auto) 4.30 (1.7-7.0) K/uL Lymph # (Auto) 2.37 (0.90-2.90) K/uL Knox # (Auto) 0.70 (0.00-0.90) K/UL Eos # (Auto) 0.27 (0.00-0.50) K/uL Baso # (Auto) 0.07 (0.00-0.30) K/uL Abs Immat Gran (auto) 0.03 (0.00-0.30) K/uL Imm/Tot Granulo (auto) 0.4 % INR 0.94 (0.91-1.10) D-Dimer Quant (PE/DVT) Cancelled Sodium 138 (135-149) mmol/L Potassium 3.5 L (3.6-5.1) mmol/L Chloride 104 (96-114) mmol/L Carbon Dioxide 25 (20-32) mmol/L Anion Gap 9 (7-15) mEq/L BUN 18 (7-30) mg/dL Creatinine 1.2 (0.5-1.5) mg/dL Estimated Creat Clear 80.20 Estimated GFR 70 ml/min Glucose 80 (60-115) mg/dL Calcium 9.5 (8.4-10.6) mg/dL POC Troponin I High Sensi 7.2 (2.9-28.0) pg/mL NT-Pro-B Natriuret Pep 193 (See Note) pg/mL POC Creatinine 1.2 (0.6-1.3) mg/dl Imaging Data CTA Head and neck: Attestation: I have reviewed the pertinent imaging results. My impression: Discuss with Stroke Neurology, Dr. Colunga. No acute findings. Radiologist's impression: Preliminary Report: 1. No intracranial proximal large vessel occlusion or significant aneurysm identified. 2. Diminutive A1 segment of the left anterior cerebral artery, with the A2 segment supplied via the anterior communicating artery. The left CHELSIE is otherwise patent. 3. Diminutive right P1 segment with essentially supply of the right posterior cerebral artery which is otherwise appears patent. 4. Cervical arterial vasculature is patent without evidence of dissection or significant stenosis. Left dominant vertebral artery. The right vertebral artery is diminutive but otherwise grossly patent. 5. Enlarged multinodular right thyroid lobe. The largest nodule is heterogeneously enhancing measuring 3.0 cm. Recommend further evaluation with nonemergent thyroid ultrasound CT scan - head: Attestation: I have reviewed the pertinent imaging results. My impression: Discuss with Stroke Neurology, Dr. Colunga. No acute findings Radiologist's impression: IMPRESSION: 1. No acute intracranial findings. 2. Diffuse paranasal sinus mucosal thickening, opacification, and right maxillary sinus air-fluid level suggesting acute sinusitis. Chest x-ray: Attestation: I have reviewed the pertinent imaging results. Radiologist's impression: IMPRESSION: 1. No acute cardiopulmonary disease is seen. Discharge Plan Discharge Clinical Impression: Brain TIA, Hypertension, Thyroid nodule Patient Disposition: Admitted As Observation
--- NOTE | 2025-04-27 22:42 | CRLHL7_ITS ---
For Patients: As a result of the Century Cures Act, medical imaging exams and procedure reports are released immediately into your electronic medical record. You may view this report before your referring provider. If you have questions, please contact your health care provider. INDICATION: Acute stroke, left hand numbness, hypertension. TECHNIQUE: CTA head using intravenous contrast with bolus tracking, 3D angiographic rendering using maximum intensity projection (MIP) and images permanently archived. CTA neck using intravenous contrast with bolus tracking, 3D angiographic rendering using maximum intensity projection (MIP) and images permanently archived. FINDINGS: CTA head: There is normal opacification of the intracranial vasculature. There is no large vessel occlusion or significant intracranial stenosis. No aneurysm is identified. CTA neck: There is no significant carotid artery stenosis or dissection. There is no significant vertebral artery stenosis or dissection. IMPRESSION: No acute intracranial abnormality at CTA. No significant carotid or vertebral artery stenosis or dissection. Per preliminary report: Enlarged multinodular right thyroid lobe. The largest nodule is heterogeneously enhancing measuring 3.0 cm. Recommend further evaluation with nonemergent thyroid ultrasound. Please note that all CT scans at this facility use dose modulation, iterative reconstruction, and/or weight-based dosing when appropriate to reduce radiation dose to as low as reasonably achievable. Dictated by Caleb Dasilva MD @ 04/28/2025 8:59:57 AM (Electronically Signed)
--- NOTE | 2025-04-27 22:42 | CRLHL7_ITS ---
For Patients: As a result of the Cures Act, medical imaging exams and procedure reports are released immediately into your electronic medical record. You may view this report before your referring provider. If you have questions, please contact your health care provider. INDICATION: Left hand numbness, hypertension. COMPARISON: None. TECHNIQUE: CT of the head without IV contrast. Coronal and sagittal reconstructions. FINDINGS: Brain: No intracranial hemorrhage, abnormal extra-axial fluid collection, or evidence of acute infarct. No mass effect or midline shift. Normal caliber ventricular system. Skull base and calvarium: Diffuse paranasal sinus mucosal thickening with opacification of multiple ethmoid air cells. Small air-fluid level in the right maxillary sinus. The mastoid air cells are clear. The visualized orbits are grossly unremarkable. No acute fracture identified. Soft tissues: Unremarkable. IMPRESSION: 1. No acute intracranial findings. 2. Diffuse paranasal sinus mucosal thickening, opacification, and right maxillary sinus air-fluid level suggesting acute sinusitis. Please note that all CT scans at this facility use dose modulation, iterative reconstruction, and/or weight-based dosing when appropriate to reduce radiation dose to as low as reasonably achievable. Dictated by Anne Adkins MD @ 04/27/2025 11:22:38 PM (Electronically Signed)
--- NOTE | 2025-04-27 22:43 | CRLHL7_ITS ---
For Patients: As a result of the Cures Act, medical imaging exams and procedure reports are released immediately into your electronic medical record. You may view this report before your referring provider. If you have questions, please contact your health care provider. INDICATION: Hypertension, left hand numbness TECHNIQUE: Chest radiograph 1 view COMPARISON: None FINDINGS: Mediastinum: The mediastinum is normal in appearance. The heart silhouette is normal in size and morphology. Lung: Both lungs are unremarkable in appearance. No sign of pleural effusion seen. No pneumothorax is identified. Bone and Soft tissue: Unremarkable for age. IMPRESSION: 1. No acute cardiopulmonary disease is seen. Dictated by: Duke Gary MD @ 04/27/2025 23:41:52 (Electronically Signed)
[2025-04-27 22:46] LABS: Chloride* 104 mmol/L (96-114); Potassium* 3.5 mmol/L (3.6-5.1); Sodium* 138 mmol/L (135-149)
[2025-04-27 22:49] LABS: Anion Gap 9 mEq/L (7-15); Blood Urea Nitrogen* 18 mg/dL (7-30); Calcium* 9.5 mg/dL (8.4-10.6); Carbon Dioxide* 25 mmol/L (20-32); Creatinine* 1.2 mg/dL (0.5-1.5); Est. Creatinine Clearance* 80.20; Estimated Glomerular Filt Rate 70 ml/min; Glucose* 80 mg/dL (60-115)
[2025-04-27 22:54] LABS: Creatinine, Point-of-Care* 1.2 mg/dl (0.6-1.3)
[2025-04-27 22:56] LABS: Hematocrit* 48.0 % (37.0-53.0); Hemoglobin* 15.2 gm/dL (13.5-17.5); Immature Granulocytes Abs Auto 0.03 K/uL (0.00-0.30); Immature Granulocytes Pct Auto 0.4 %; Lymphocytes Absolute Auto 2.37 K/uL (0.90-2.90); Mean Corpuscular HGB Conc 32 gm/dL (32-36); Mean Corpuscular Hemoglobin 29 pg (26-34); Mean Corpuscular Volume 92 fL (80-100); RDW Coefficient of Variation % 13.1 % (11.5-15.5); Red Blood Count* 5.23 m/uL (4.30-5.90); White Blood Count* 7.78 K/uL (4.50-11.00)
[2025-04-27 23:01] LABS: Slide Review Reflex No
[2025-04-27 23:30] LABS: INR 0.94 (0.91-1.10); Prothrombin Time 13.3 Seconds
[2025-04-28] VITALS (7 sets, daily range): BP systolic 150–164; BP diastolic 99–116; PULSE 57–77; RESP 16–20; TEMP 36.4–36.9; O2SAT 92–98; BMI 33.1; BMI 33.2
[2025-04-28 00:08] LABS: NT Pro B Type NatriureticPept* 193 pg/mL (See Note)
[2025-04-28] MEDS: ASPIRIN EC 325 MG TABLET PO ×2 (00:15→09:09)
--- NOTE | 2025-04-28 02:01 | W.PM.TELEH&P ---
Telehealth- H&P: HPI History of Present Illness Time Seen by Provider: 01:30 Date Seen: 04/28/25 Chief complaint: High BP Narrative: The patient is a 59 year old male with a history of HTN and hyperlipidemia. About wo weeks ago he started having dizzy spells. His blood pressure has been running 150-160's/ 110. The dizzy spells went away bu the high blood pressure persisted. He was recently switched from and ACEI to an ARB. This past evening he was sitting and watching television and around 9 pm he noticed that his right arm was tingling from his elbow to his fingers. He had no abnormal sensations in his face or other extremities. He had no headache, focal weakness, difficulty speaking or understanding. He was not feeling dizzy. He came to the ER where his BP was 175/114, HR 85, O2 sat 98%. He had a non focal neuro exam and his symptoms resolved on their own. His blood pressure remained elevated. His labs were normal except for K of 3.5. CTA of the head did not show any large vessel stenosis. He was found to have an enlarged and nodular lobe of the thyroid. CT head showed sinus disease but no acute stroke or hemorrhage. The stroke neurologist recommended ASA and admission for a TIA/stroke evaluation. The patient had no complaints when I saw him. Review of Systems Status of ROS: Reports: 10 or more systems reviewed and unremarkable except as noted in History and below PFSH PFS Surgical History Status post tonsillectomy (02/01/09) ?Z90.89 - Acquired absence of other organs (ICD-10) Social History What is your current living situation?: I presently have a place to live Problems where you live: no known problems In the past 12 months, utilities in danger of being shut off: no In past 12 months, lack of transportation kept you from medical appts, meetings, work, or getting things needed for daily living: no In the past 12 mos, have been you worried that your food would run out before you had money to buy more?: never true In the past 12 mos, the food you bought just didn't last and you didn't have money to buy more?: never true Highest level of school completed/degree received: Bachelor's degree Smoking Status: Never smoker Second hand tobacco smoke exposure: No How often do you have a drink containing alcohol: never AUDIT-C Alcohol total score: 0 Non-prescribed substance use: denies use Caffeine: Yes (coffee) How often does anyone, including family, friends and others, physically hurt you: never How often does anyone, including family, friends and others, insult or talk down to you: never How often does anyone, including family, friends and others, threaten you with harm: never How often does anyone, including family, friends and others, scream or curse at you: never service: Yes Meds Home Medications and Allergies Home Medications ?Medication ?Instructions ?Recorded ?Confirmed ?Type omega 3-vvf-mjv-fish oil 300 1 cap PO QDAY 01/31/22 03/27/24 History mg-1,000 mg capsule (Fish Oil) omeprazole 20 mg capsule,delayed 20 mg PO QDAY 01/31/22 03/27/24 History release lisinopril 40 mg tablet 40 mg PO QDAY #90 tabs 03/27/23 03/27/24 Rx atorvastatin 10 mg tablet 10 mg PO QDAY #90 tabs 04/01/25 04/01/25 Rx irbesartan 150 mg tablet 150 mg PO QDAY #90 tabs 04/01/25 04/01/25 Rx Allergies Allergy/AdvReac Type Severity Reaction Status Date / Time ibuprofen Allergy Mild Stomach Verified 03/27/24 13:19 pains Exam Narrative Exam Narrative: Physical Exam GENERAL: ?vital signs reviewed, well developed and nourished, in no distress HEENT: pupils are equal round and reactive to light, extraocular movements are grossly within normal limits and oral mucosa is moist. HEART: Regular rate and rhythm without any rubs, murmurs, or gallops. LUNGS: Clear to auscultation bilaterally with good air movement throughout ABDOMEN: Observation from nurse assisted exam, abdomen appears soft, nontender, and nondistended with Positive bowel sounds noted. EXTREMITIES: Strength and sensation is observed to be grossly within normal limits in the upper and lower extremities.? No focal strength deficit is observed. SKIN:? Observed warm and dry with color normal Const Vital Signs, click to edit/add: Vital Signs - 24 hr 04/27/25 22:19 04/27/25 22:40 04/27/25 22:41 Temperature 97.8 F Pulse Rate 85 Pulse Rate [Pulse Oximeter] Pulse Rate [Right Pulse Oximeter] 90 Respiratory Rate 18 20 Blood Pressure 179/111 H Blood Pressure [Right Arm] Blood Pressure [Right Upper Arm] 175/113 H Pulse Oximetry 98 94 98 Oxygen Delivery Method Room Air 04/27/25 22:47 04/27/25 23:10 04/27/25 23:18 Temperature Pulse Rate 90 76 77 Pulse Rate [Pulse Oximeter] Pulse Rate [Right Pulse Oximeter] Respiratory Rate 12 10 L 14 Blood Pressure 173/107 H 182/107 H 168/112 H Blood Pressure [Right Arm] Blood Pressure [Right Upper Arm] Pulse Oximetry 98 94 96 Oxygen Delivery Method 04/27/25 23:32 04/27/25 23:48 04/28/25 00:02 Temperature Pulse Rate 75 75 77 Pulse Rate [Pulse Oximeter] Pulse Rate [Right Pulse Oximeter] Respiratory Rate 19 19 20 Blood Pressure 164/104 H 152/107 H 164/116 H Blood Pressure [Right Arm] Blood Pressure [Right Upper Arm] Pulse Oximetry 93 95 94 Oxygen Delivery Method 04/28/25 00:17 04/28/25 00:42 Temperature Pulse Rate 73 Pulse Rate [Pulse Oximeter] 66 Pulse Rate [Right Pulse Oximeter] Respiratory Rate 20 18 Blood Pressure 164/110 H Blood Pressure [Right Arm] 163/108 H Blood Pressure [Right Upper Arm] Pulse Oximetry 94 98 Oxygen Delivery Method Room Air Hospitalist - H&P: Result Labs Labs: Short CBC 04/27/25 Range/Units 22:25 WBC 7.78 (4.50-11.00) K/uL Hgb 15.2 (13.5-17.5) gm/dL Hct 48.0 (37.0-53.0) % Plt Count 251 (140-440) K/uL BMP 04/27/25 22:25 Sodium 138 Potassium 3.5 L Chloride 104 Carbon Dioxide 25 BUN 18 Creatinine 1.2 Glucose [address] scan - head: Attestation: I have reviewed the pertinent imaging results. Assessment and Plan Assessment and plan (1) Brain TIA: Status: Acute (2) Hypertension: Status: Acute Plan The patient is a 59 year old male with HTN and hyperlipidemia who has noticed that his BP has been running high for about 2 weeks. He was having dizzy spells. Last evening his developed left arm numbness and came to the ER where he was hypertensive but had a non focal exam. CTA and CT head were negative for acute stroke, hemorrhage or large vessel disease. His symptoms resolved on their own. The stroke neurologist recommended admission for a standard TIA/stroke evaluation as well as ASA. TIA versus small stroke HTN Hypercholesterolemia Admit to observation Cardiac telemetry MRI and TTE in the morning ASA 162 mg qd Continue statin Permissive HTN for now- hold TECHNOLOGY STRATEGIST medications tonight Abnormal thyroid on CT Outpatient evaluation Telehealth Visit: Todays History and Physical is via interactive telehealth by Lobito Pena MD. The Patient is located . Physician is located at [facility]. Nursing staff assisted in the patient's exam. The visit being done today meets criteria for a telehealth visit and the patient or patient's parent/guardian is aware the visit is a telehealth visit. Camera Start time 0133 am Camera End time 0145 am Telehealth: Statement Statement Telehealth Visit: Today's History and Physical is provided via interactive telehealth by Lobito Pena MD.? Patient is located at [facility].? Provider is located at [facility].? Nursing staff assisted with the patient's exam. The visit being done today meets criteria for a telehealth visit and the patient or patient?s parent/guardian is aware the visit is a telehealth visit.
[2025-04-28] MEDS: ATORVASTATIN CALCIUM 10 MG TABLET PO (02:45)
[2025-04-28] MEDS: OMEPRAZOLE 20 MG CAPSULE DR PO (07:38)
--- NOTE | 2025-04-28 07:42 | PC.NURSE ---
End of shift Note 260 Patient was very pleasant and cooperative throughout shift. VSS. Afebrile. Independent. A&Ox4. Uses call light appropriately. Call light within reach.
--- NOTE | 2025-04-28 08:40 | CRLHL7_ITS ---
For Patients: As a result of the Century Cures Act, medical imaging exams and procedure reports are released immediately into your electronic medical record. You may view this report before your referring provider. If you have questions, please contact your health care provider. Indication: Right upper extremity tingling. Technique: Multiplanar, multisequence MRI of the brain was performed without intravenous contrast. Comparison: CT head 04/27/2025. Findings: The corpus callosum, pituitary gland clivus appear intact. Craniocervical junction appears preserved. There is no restricted diffusion. No intracranial hemorrhage. The ventricles are proportionate to the cerebral sulci. The 4th ventricle appears midline. The basal cisterns appear patent. No abnormal extra-axial fluid collection identified. There is no intracranial mass, abnormal mass-effect or midline shift identified. Major intracranial vascular flow voids appear grossly intact. Both globes are preserved. Moderate to severe paranasal sinus mucosal disease. Impression: 1. No acute intracranial process. 2. Moderate to severe paranasal sinus mucosal disease. Dictated by Darius King MD @ 04/28/2025 11:31:08 AM (Electronically Signed)
[2025-04-28] MEDS: SODIUM CHLORIDE 0.9 % (FLUSH) 10 ML SYRINGE 5 ML IVF (09:10)
--- NOTE | 2025-04-28 10:30 | P.DS_ITS ---
DS: Providers Provider Date Seen: 04/28/25 Date of admission: 04/28/25 00:26 Primary care physician: Efrain Cummins MD Admitting Clinician: Yenny Nagel MD Consults: 04/28/25 01:54 Consult to Physical Therapy [CONS] Routine Comment: Reason(s) for PT Consult:: Evaluate and Treat Any Restrictions?:: No Restrictions 04/28/25 01:56 Consult to Occupational Therapy [CONS] Routine Comment: Reason(s) for OT Consult:: Evaluate and Treat Any Restrictions?:: No Restrictions Attending Physician on discharge: REBECA Knight, ROBBY Date of Discharge: 04/28/25 DS: Diagnosis Discharge Diagnosis (1) Brain TIA: Status: Acute Problem details: -LUE paresthesias from left elbow to fingertips, completely resolved, lasting approximately 2 hours, without recurrence -head and neck CTA shows No acute intracranial abnormality at CTA. No significant carotid or vertebral artery stenosis or dissection -MRI brain without acute intracranial process. No note of chronic infarcts -lunchroom monitor overnight unremarkable -PT/OT assessed without need for ongoing acute therapies -lipid panel and A1c pending -echocardiogram 04/28/2025 Final Impressions: 1. Normal LV size, mildly increased wall thickness, and normal LVEF = 60%. 2. Normal RV size and function. 3. Mild biatrial enlargement. 4. Mild aortic regurgitation. 5. Negative bubble study at rest and with valsalva. 6. The inferior vena cava is normal sized, respiratory size variation greater than 50%. -[facility] assessed, evaluation showing no evidence of acute or chronic stroke. Risk factors for stroke identified is borderline elevated hemoglobin A1c, elevated blood pressure, elevated LDL cholesterol. Neurology recommending aggressive risk factor treatment including targeting LDL to less than 70. Outpatient follow-up with PCP in 2 days. (2) Hypertension: Status: Acute Problem details: -currently allowing for permissive hypertension -resume irbesartan on discharge (3) Hyperlipidemia: Status: Acute Problem details: -continue on atorvastatin 10 mg daily, goal LDL <70 (4) Thyroid nodule: Status: Acute Problem details: -incidental finding, CT shows Enlarged multinodular right thyroid lobe. The largest nodule is heterogeneously enhancing measuring 3.0 cm -recommend further evaluation with nonemergent thyroid ultrasound in the outpatient setting (5) Pansinusitis: Status: Acute Problem details: -incidental finding, CT shows Diffuse paranasal sinus mucosal thickening, opacification, and right maxillary sinus air-fluid level suggesting acute sinusitis. Of note, History of bilateral sinus disease with obstruction noted from 2021. -outpatient follow-up with PCP DS: Summary Hospital Course Hospital Course: Course of care and details as noted above. 59-year-old male admitted for further stroke workup in setting of recent worsening hypertension, episodic lightheadedness and vertigo, LUE paresthesias now completely resolved. No evidence of acute or chronic stroke. Recommendations per Neurology as above. Outpatient follow-up with PCP for risk management stratification. Status at Discharge Functional status at discharge: independent ambulation Overall status at discharge: patient is back to baseline Time Spent with Patient Time attestation: Total time spent providing and/or coordinating discharge services: Time spent: Greater than 30 minutes Exam Narrative: Exam Narrative: PHYSICAL EXAM General: Pleasant, conversant, NAD Cardiovascular: RRR Pulmonary: No dyspnea Neurological: Alert, answering questions appropriately. No focal findings. Skin: Warm, dry. Const: Vital Signs, click to edit/add: Vital Signs - 24 hr 04/27/25 22:19 04/27/25 22:40 04/27/25 22:41 Temperature 97.8 F Pulse Rate 85 Pulse Rate [Pulse Oximeter] Pulse Rate [Right Pulse Oximeter] 90 Respiratory Rate 18 20 Blood Pressure 179/111 H Blood Pressure [Ri ght Arm] Blood Pressure [Ri ght Upper Arm] 175/113 H Pulse Oximetry 98 94 98 Oxygen Delivery Me od Room Air 04/27/25 22:47 04/27/25 23:10 04/27/25 23:18 Temperature Pulse Rate 90 76 77 Pulse Rate [Pulse Oximeter] Pulse Rate [Right Pulse Oximeter] Respiratory Rate 12 10 L 14 Blood Pressure 173/107 H 182/107 H 168/112 H Blood Pressure [Ri ght Arm] Blood Pressure [Ri ght Upper Arm] Pulse Oximetry 98 94 96 Oxygen Delivery Me thod 04/27/25 23:32 04/27/25 23:48 04/28/25 00:02 Temperature Pulse Rate 75 75 77 Pulse Rate [Pulse Oximeter] Pulse Rate [Right Pulse Oximeter] Respiratory Rate 19 19 20 Blood Pressure 164/104 H 152/107 H 164/116 H Blood Pressure [Ri ght Arm] Blood Pressure [Ri ght Upper Arm] Pulse Oximetry 93 95 94 Oxygen Delivery Me thod 04/28/25 00:17 04/28/25 00:42 04/28/25 01:54 Temperature Pulse Rate 73 57 L Pulse Rate [Pulse Oximeter] 66 Pulse Rate [Right Pulse Oximeter] Respiratory Rate 20 18 Blood Pressure 164/110 H Blood Pressure [Ri ght Arm] 163/108 H Blood Pressure [Ri ght Upper Arm] Pulse Oximetry 94 98 Oxygen Delivery Me thod Room Air 04/28/25 03:00 04/28/25 07:00 04/28/25 07:00 Temperature 97.6 F Pulse Rate 76 Pulse Rate [Pulse Oximeter] 73 Pulse Rate [Right Pulse Oximeter] Respiratory Rate 18 16 Blood Pressure Blood Pressure [Ri ght Arm] 152/99 H Blood Pressure [Ri ght Upper Arm] Pulse Oximetry 92 Oxygen Delivery Me thod Room Air 04/28/25 07:00 Temperature 97.9 F Pulse Rate Pulse Rate [Pulse Oximeter] 66 Pulse Rate [Right Pulse Oximeter] Respiratory Rate 16 Blood Pressure Blood Pressure [Ri ght Arm] 150/102 H Blood Pressure [Ri ght Upper Arm] Pulse Oximetry 94 Oxygen Delivery Me thod Room Air DS: Data Data Completed and Pending Labs on day of discharge: Labs from last 24 hours 04/27/25 04/27/25 04/27/25 22:43 22:40 22:25 WBC 7.78 RBC 5.23 Hgb 15.2 Hct 48.0 MCV 92 MCH 29 MCHC 32 RDW Coeff of Kindra 13.1 Plt Count 251 Neut % (Auto) 55.2 Lymph % (Auto) 30.5 [place] % (Auto) 9.5 Eos % (Auto) 3.5 Baso % (Auto) 0.9 Neut # (Auto) 4.30 Lymph # (Auto) 2.37 [place] # (Auto) 0.70 Eos # (Auto) 0.27 Baso # (Auto) 0.07 Abs Immat Gran (auto) 0.03 Imm/Tot Granulo (auto) 0.4 INR 0.94 D-Dimer Quant (PE/DVT) Cancelled Sodium 138 Potassium 3.5 L Chloride 104 Carbon Dioxide 25 Anion Gap 9 BUN 18 Creatinine 1.2 Estimated Creat Clear 80.20 Estimated GFR 70 Glucose 80 Calcium 9.5 POC Troponin I High Sensi 7.2 NT-Pro-B Natriuret Pep 193 POC Creatinine 1.2 Imaging CTA head/neck: Attestation: I have reviewed the pertinent imaging results. Radiologist's impression: CTA head: There is normal opacification of the intracranial vasculature. There is no large vessel occlusion or significant intracranial stenosis. No aneurysm is identified. CTA neck: There is no significant carotid artery stenosis or dissection. There is no significant vertebral artery stenosis or dissection. IMPRESSION: No acute intracranial abnormality at CTA. No significant carotid or vertebral artery stenosis or dissection. Per preliminary report: Enlarged multinodular right thyroid lobe. The largest nodule is heterogeneously enhancing measuring 3.0 cm. Recommend further evaluation with nonemergent thyroid ultrasound. CT scan - head: Attestation: I have reviewed the pertinent imaging results. Radiologist's impression: Brain: No intracranial hemorrhage, abnormal extra-axial fluid collection, or evidence of acute infarct. No mass effect or midline shift. Normal caliber ventricular system. Skull base and calvarium: Diffuse paranasal sinus mucosal thickening with opacification of multiple ethmoid air cells. Small air-fluid level in the right maxillary sinus. The mastoid air cells are clear. The visualized orbits are grossly unremarkable. No acute fracture identified. Soft tissues: Unremarkable. IMPRESSION: 1. No acute intracranial findings. 2. Diffuse paranasal sinus mucosal thickening, opacification, and right maxillary sinus air-fluid level suggesting acute sinusitis. Chest x-ray: Attestation: I have reviewed the pertinent imaging results. Radiologist's impression: Mediastinum: The mediastinum is normal in appearance. The heart silhouette is normal in size and morphology. Lung: Both lungs are unremarkable in appearance. No sign of pleural effusion seen. No pneumothorax is identified. Bone and Soft tissue: Unremarkable for age. IMPRESSION: 1. No acute cardiopulmonary disease is seen. MR Brain: Attestation: I have reviewed the pertinent imaging results. Radiologist's impression: Comparison: CT head 04/27/2025. Findings: The corpus callosum, pituitary gland clivus appear intact. Craniocervical junction appears preserved. There is no restricted diffusion. No intracranial hemorrhage. The ventricles are proportionate to the cerebral sulci. The 4th ventricle appears midline. The basal cisterns appear patent. No abnormal extra-axial fluid collection identified. There is no intracranial mass, abnormal mass-effect or midline shift identified. Major intracranial vascular flow voids appear grossly intact. Both globes are preserved. Moderate to severe paranasal sinus mucosal disease. Impression: 1. No acute intracranial process. 2. Moderate to severe paranasal sinus mucosal disease. Discharge Plan Discharge Disposition: Home, Self-Care Date of Admission: 04/28/25 00:26 Attending Provider on Discharge: Christa Khan Primary Care Provider: Efrain Cummins Condition: Improved Anticipated Discharge Date/Time: 04/28/25 13:00 Discharge Medications: Continued omeprazole 20 mg capsule,delayed release(DR/EC) 20 mg PO QDAY omega 0-ulm-xeq-fish oil [Fish Oil] 300-1,000 mg capsule 1 cap PO QDAY irbesartan 150 mg tablet 150 mg PO QDAY Qty: 90 3RF Changed atorvastatin 10 mg tablet 20 mg PO QDAY Qty: 90 0RF Discharge Orders: Discharge Order (Routine); Ordered 04/28/25 Ordered By: Aristides Fernando Patient Education: Sinusitis (GEN), Chronic Hypertension (DC) Additional Instructions: Your evaluation here did not show any sign of recent or old stroke. Imaging of your head did show signs of probable chronic sinusitis with mucosal thickening in your sinuses and fluid in your sinuses. Discussed this with your doctor. Also talk to your doctor about your blood pressure and cholesterol. I recommend we increase your atorvastatin from 10 mg daily to 20 mg daily. You may also need more blood pressure medicine. Activity Level: No Restrictions Discharge Diet: Regular Follow Up Appointments: Efrain Cummins MD [Primary Care Provider, Family Practice] Referral Note: post hospital follow up 2 days-already scheduled Forms: Tag & See Info Instructions
--- NOTE | 2025-04-28 11:38 | REH.OT ---
OT screen completed. Pt is orient x4. Pt is mobilizing in room independently. BUE life skills instructor, strength, AROM, and coordination appear WNL. Pt denies vision changes. No further OT warranted.
[2025-04-28 12:59] LABS: Cholesterol* 180 mg/dL (90-199); HDL Cholesterol* 49 mg/dL (>=40); Triglycerides* 127 mg/dL (40-149)
--- NOTE | 2025-04-28 14:23 | W.PM.CROSSCO ---
Subjective Subjective Date Seen: 04/28/25 Interval history: 59-year-old male admitted overnight for evaluation of possible stroke symptoms. Evaluation showed no evidence of acute or chronic stroke. Evaluation did show risk factors for stroke including borderline elevated hemoglobin A1c, elevated blood pressure, elevated LDL cholesterol. Stroke neurologist recommends aggressive risk factor treatment including targeting LDL to less than 70. I also noted that he has pansinusitis on his brain imaging and may need follow-up of this at this time he denies any symptoms. He has follow-up with Dr. Cummins in 2 days for ongoing risk factor management.
--- NOTE | 2025-04-28 15:10 | PC.NURSE ---
Pt doing well this shift. VSS, permissive hypertension per MD order. Denies pain. Denies dizziness or lightheadedness. Pt is ambulating well independently and tolerating oral intake. Pt signed belongings form and discharge instructions, no further questions or concerns at this time. Pt discharged home via at 1500.
== END 2025-04-28 15:00 | disposition home or self-care (01) ==
LOC: ED 23:48 → MEDSURG 04-28 00:27
PROVIDERS: Physician Assistant; Admitting Provider Student in an Organized Health Care Education/Training Program; Emergency Provider Emergency Medicine; PCP Family Medicine; Visit Provider Student in an Organized Health Care Education/Training Program
DX: G45.9 Transient cerebral ischemic attack, unspecified (principal); I10 Essential (primary) hypertension; E78.5 Hyperlipidemia, unspecified; E04.1 Nontoxic single thyroid nodule; J32.4 Chronic pansinusitis; Z82.49 Family history of ischemic heart disease and other diseases of the circulatory system; R42 Dizziness and giddiness
CPT/HCPCS: 36415; 70450; 70496; 70498; 70551; 71045; 80048; 80061; 82565; 83036; 83880; 84484; 85025; 85379; 85610; 93005; 93306; 94761; 97161; 99284; 99285; 99291; A9270; G0378; Q9967